=== PATIENT | male | born 2000 | race African-American/Black ===

== ENCOUNTER 2019-09-08 11:54 | Emergency (ER) | payer SELFPAY ==
[2019-09-08] MEDS ORDERED: Cyclobenzaprine 10 MG TAB ONE (13:20)
[2019-09-08] MEDS ORDERED: Naproxen 500 MG TAB ONE (13:21)
== END 2019-09-08 13:26 | disposition home or self-care (01) ==
LOC: ERS 11:54
DX: S39.012A Strain of muscle, fascia and tendon of lower back, initial encounter (principal); S16.1XXA Strain of muscle, fascia and tendon at neck level, initial encounter; V89.2XXA Person injured in unspecified motor-vehicle accident, traffic, initial encounter
CPT/HCPCS: 99283

== ENCOUNTER 2019-09-13 13:58 | Emergency (ER) | payer SELFPAY ==
[2019-09-13] MEDS ORDERED: Ondansetron ODT 4 MG TAB ONE (15:07)
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
== END 2019-09-13 15:35 | disposition home or self-care (01) ==
LOC: ERS 13:58
DX: S06.0X0A Concussion without loss of consciousness, initial encounter (principal); R11.2 Nausea with vomiting, unspecified; F17.200 Nicotine dependence, unspecified, uncomplicated; V89.2XXA Person injured in unspecified motor-vehicle accident, traffic, initial encounter
CPT/HCPCS: 70450; Q0162